=== PATIENT | male | born 2000 | race Caucasian/White ===

== ENCOUNTER 2020-12-19 18:56 | Emergency (ER) | payer BC, OTHER ==
[2020-12-19] MEDS ORDERED: Ibuprofen 600 MG Tab PO ONE (19:17)
--- NOTE | 2020-12-19 19:22 | EDM.PDOC ---
ED HPI GENERAL MEDICAL PROBLEM - General Chief Complaint: Upper Extremity Injury/Pain Stated Complaint: RT ARM INJURY Time Seen by Provider: 12/19/20 19:04 Source of Information: Reports: Patient, RN Notes Reviewed History Limitations: Reports: No Limitations - History of Present Illness INITIAL COMMENTS - FREE TEXT/NARRATIVE: Patient is a 20-year-old male who presents to the ER for evaluation of his right arm injury. Patient states that he was at baseball, when he took a line drive hit directly to the right outer forearm, states that he felt a very sharp pain, that shot up to his shoulder, and down into his fingers directly after the hip. There is a rather large circular area on the outer forearm, that is concerning for contusion/soft tissue injury. Patient states he has not been able to move his hand in any range of motion much, due to the pain. 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 States he still can feel his fingers, and can move them in all range of motion, with some difficulty due to pain. Patient is predominantly left-handed. Patient denies any other sick-like symptoms, fever/chills, cough/shortness of breath, nausea/vomiting/diarrhea. He did not take anything for pain prior to coming to the ER. Right Arm Pain Score (Numeric/FACES): 7 - Related Data Allergies Allergy/AdvReac Type Severity Reaction Status Date / Time No Known Allergies Allergy Verified 12/19/20 19:06 Home Meds: Home Meds . [No Known Home Meds] 12/19/20 [History] Past Medical History - Past Health History Medical/Surgical History: Denies Medical/Surgical History - Past Surgical History HEENT Surgical History: Reports: Myringotomy w Tube(s) Social & Family History - Tobacco Use Tobacco Use Status *Q: Current Some Day Tobacco User Years of Tobacco use: 2 Packs/Tins Daily: 0.1 - Recreational Drug Use Recreational Drug Use: No Review of Systems - Review of Systems Review Of Systems: Comprehensive ROS is negative, except as noted in HPI. ED EXAM, GENERAL - Physical Exam Exam: See Below Exam Limited By: No Limitations General Appearance: Alert, WD/WN, No Apparent Distress Respiratory/Chest: No Respiratory Distress, Lungs Clear, Normal Breath Sounds, No Accessory Muscle Use, Chest Non-Tender Cardiovascular: Normal Peripheral Pulses, Regular Rate, Rhythm, No Edema Extremities: Normal Capillary Refill, Limited Range of Motion (of right forearm/elbow d/t pain in R outer forearm where the baseball hit. There is a circular contusion to the are), Redness (R outer forearm with circular contusion noted.) Neurological: Alert, Oriented, Normal Cognition, No Motor/Sensory Deficits Psychiatric: Normal Affect, Normal Mood Skin Exam: Warm, Dry, Intact, No Rash, Erythema (to R outer forearm, with circular contusion noted.) Course - Vital Signs Last Recorded V/S: Last Vital Signs Temp 98 F 12/19/20 19:04 Pulse 76 12/19/20 19:04 Resp 16 12/19/20 19:04 BP 143/91 H 12/19/20 19:04 Pulse Ox 98 12/19/20 19:04 - Orders/Labs/Meds Meds: Medications Discontinued Medications Generic Name Dose Route Start Last Admin Trade Name Freq PRN Reason Stop Dose Admin Ibuprofen 600 mg 12/19/20 19:17 12/19/20 19:42 Ibuprofen 600 Mg Tab PO 12/19/20 19:18 600 mg ONETIME ONE Administration - Re-Assessments/Exams Free Text/Narrative Re-Assessment/Exam: 12/19/20 19:22 Patient presents to the ER for his right forearm injury/pain we will go ahead and get x-rays of the area for further management. 12/19/20 20:22 X-rays demonstrate no sign of fracture or other bony abnormalities, there is quite a bit of soft tissue swelling noted. I did go over conservative measures with the patient and he does understand at this time. Departure - Departure Time of Disposition: 20:23 Disposition: Home, Self-Care 01 Condition: Good Clinical Impression: Contusion of right forearm, initial encounter - Discharge Information *PRESCRIPTION DRUG MONITORING PROGRAM REVIEWED*: No *COPY OF PRESCRIPTION DRUG MONITORING REPORT IN PATIENT BERNADETTE: No Instructions: Contusion, [id number] Referrals: PCP,None [Primary Care Provider] - Forms: ED Department Discharge, ED Return to Work/School Form Additional Instructions: You have been evaluated in the ED for your right forearm injury. Your x-ray demonstrated no acute fractures or other bony abnormalities. Please use ice as tolerated to the affected area. Please try to elevate the affected area to relieve swelling. You were given an Titi wrap, this might help provide some compression of the area to further provide relief from pain. You may take Tylenol 500 mg or ibuprofen 600mg q6 hrs for pain relief. Please do so until you have a tolerable level of pain with activity. Do not exceed 4000mg Tylenol or 3200mg ibuprofen in a 24 hour time period. Please return to ED if your symptoms should change or worsen. Sepsis Event Note (ED) - Evaluation Sepsis Screening Result: No Definite Risk - Focused Exam Vital Signs: Vital Signs Temp Pulse Resp BP Pulse Ox 12/19/20 19:04 98 F 76 16 143/91 H 98
--- NOTE | 2020-12-19 20:02 | CR ---
Right forearm: 2 views of the right forearm were obtained. Comparison: No previous study. Soft tissue swelling is noted. No discrete fracture or other bony abnormality is seen. No soft tissue air is seen. Impression: 1. Soft tissue swelling. 2. No acute osseous abnormality is appreciated. Diagnostic code #2
== END 2020-12-19 20:30 | disposition home or self-care (01) ==
LOC: JD.ED 18:56
DX: S50.11XA Contusion of right forearm, initial encounter (principal); Z72.0 Tobacco use; W21.03XA Struck by baseball, initial encounter; Y93.64 Activity, baseball
CPT/HCPCS: 73090; 99283; A9270; 99282